=== PATIENT | male | born 1955 | race Caucasian/White ===

== ENCOUNTER 2017-06-13 01:52 | Emergency (ER) | payer OTHER ==
[2017-06-13] MEDS ORDERED: Hydromorphone 1 mg/ml Ampule IV ONE (02:16)
[2017-06-13] MEDS ORDERED: Phenergan 25 MG INJ IV ONE (02:16)
--- NOTE | 2017-06-13 02:25 | ERPHSYRPT ---
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 STATES HE COULD NOT GET COMFORTABLE, STATES WHEN HE MOVES IN CERTAIN DIRECTIONS IT HURTS WORSE. REPORTS IT IS DIFFICULT TO TAKE A DEEP BREATH. REPORTS HE WAS AT A [place] THIS EVENING AND HAD 2 BEERS WELL SOME DRINKS WITH TOMATO JUICE. PT ALSO REPORTS HAVING CHILLS. Triage Nursing Assessment: PT IS AOX3, PUPILS PERRL, RESPS ARE EASY AND NON LABORED, RADIAL PULSES ARE STRONG AND EQUAL, BOWEL SOUNDS ARE PRESENT AND NORMOACTIVE X4, ABD IS SOFT AND NON TENDER WITH PALPATION, PAIN RADIATES FROM LEFT UPPER QUAD TO THE LEFT FLANK AND BACK AREA. PEDAL PULSES ARE STRONG AND EQUAL. SKIN IS PINK WARM AND DRY. Physician History: ABOUT 30 MINUTES AGO PT AWOKE WITH SHARP LEFT CHEST/FLANK/LUQ ABDOMINAL PAIN WORSE WITH MOVEMENT AND DEEP BREATHING WITH CHILLS; DENIES VOMITING, FEVER, SHORTNESS OF AIR. PT STATES 3 DAYS AGO HE WAS HELPING ANOTHER PERSON LIFT 150# TENT POLES WHEN THE CLAMP SLIPPED ON HIS END CAUSING THE POLES TO SUDDENLY FALL. Allergies/Adverse Reactions: No Known Drug Allergies Allergy (Verified 06/13/17 02:07) Home Medications: Metformin HCl 500 mg [Glucophage 500 MG] 1 tab PO BID 07/02/16 [History] Pravastatin Sodium 1 tab PO DAILY 07/02/16 [History] Hx Tetanus, Diphtheria Vaccination/Date Given: Yes Hx Influenza Vaccination/Date Given: No Hx Pneumococcal Vaccination/Date Given: No Immunizations Up to Date: Yes - Review of Systems Constitutional: Chills, No Fever Respiratory: No Cough, No Dyspnea Cardiac: Chest Pain Abdominal/Gastrointestinal: Abdominal Pain (LUQ), Other (LEFT FLANK PAIN) Neurological: No Headache Endocrine: No Excessive Sweating All Other Systems: Reviewed and Negative - Past Medical History Pertinent Past Medical History: Yes Neurological History: No Pertinent History ENT History: No Pertinent History Cardiac History: High Cholesterol Respiratory History: No Pertinent History Endocrine Medical History: Diabetes Type II, Other Musculoskeletal History: No Pertinent History GI Medical History: No Pertinent History History: No Pertinent History Psycho-Social History: No Pertinent History Male Reproductive Disorders: No Pertinent History Other Medical History: pre diabetic, psoriasis - Past Surgical History Past Surgical History: Yes Neuro Surgical History: No Pertinent History Cardiac: No Pertinent History Respiratory: No Pertinent History Gastrointestinal: Appendectomy Genitourinary: No Pertinent History Musculoskeletal: No Pertinent History Male Surgical History: No Pertinent History - Social History Smoking Status: Current every day smoker Drug Use: none Patient Lives Alone: No - Nursing Vital Signs Nursing Vital Signs: Initial Vital Signs Temperature 98.3 F 06/13/17 01:55 Pulse Rate 93 H 06/13/17 01:55 Respiratory Rate 20 06/13/17 01:55 Blood Pressure 150/97 06/13/17 01:55 O2 Sat by Pulse Oximetry 96 06/13/17 01:55 Pain Scale Pain Intensity 0 - Physical Exam General Appearance: alert Eye Exam: PERRL/EOMI Ears, Nose, Throat Exam: pharynx normal, moist mucous membranes Neck Exam: normal inspection Respiratory Exam: lungs clear, No chest tenderness Cardiovascular Exam: normal heart sounds Gastrointestinal/Abdomen Exam: soft, normal bowel sounds Back Exam: normal inspection Extremity Exam: No pedal edema Neurologic Exam: alert, cooperative Skin Exam: warm, dry SpO2 Interpretation: normal SpO2: 96 Oxygen Delivery: Room Air - Course Nursing assessment & vital signs reviewed: Yes EKG Interpreted by Me: RATE (83), Sinus Rhythm, NORMAL AXIS, NORMAL INTERVALS - Radiology Exams Chest X-ray Interpretation: Interpreted by me, No Pneumonia - CT Exams Abdomen/Pelvis CT Interpretation: Tele-radiologist Report (SEE REPORT) Ordered Tests: Active Orders 24 hr Category Date Time Status Clean Catch Urine Specimen STAT Care 06/13/17 02:16 Active EKG-ER Only STAT Care 06/13/17 02:16 Active IV Insertion STAT Care 06/13/17 02:16 Active ABDOMEN AND PELVIS W/0 CONTRAS [CT] Stat Exams 06/13/17 02:17 Taken CHEST 2 VIEWS (PA AND LAT) Stat Exams 06/13/17 02:17 Taken AMYLASE Stat Lab 06/13/17 02:20 Completed CBC W DIFF Stat Lab 06/13/17 02:20 Completed CMP Stat Lab 06/13/17 02:20 Completed LIPASE Stat Lab 06/13/17 02:20 Completed MAG [MAGNESIUM] Stat Lab 06/13/17 02:20 Completed TROPONIN Q3H Lab 06/13/17 02:20 Completed TROPONIN Q3H Lab 06/13/17 05:30 Ordered TROPONIN Q3H Lab 06/13/17 08:30 Ordered TROPONIN Q3H Lab 06/13/17 11:30 Ordered TROPONIN Q3H Lab 06/13/17 14:30 Ordered UA W/ MICROSCOPIC Stat Lab 06/13/17 03:45 Completed Medication Summary Generic Name Dose Route Start Last Admin Trade Name Freq PRN Reason Stop Dose Admin Sodium Chloride 1,000 mls @ 100 mls/hr 06/13/17 02:30 06/13/17 02:28 Sodium Chloride 0.9% 1000 Ml IV 07/13/17 02:29 100 mls/hr .Q10H SEBASTIEN Administration Magnesium Oxide 400 mg 06/13/17 10:00 Mag-Ox 400 PO 07/13/17 09:59 BID SEBASTIEN Discontinued Medications Generic Name Dose Route Start Last Admin Trade Name Keshavq PRN Reason Stop Dose Admin Hydromorphone HCl 1 mg 06/13/17 02:16 06/13/17 02:28 Hydromorphone 1 Mg/Ml Ampule IV 06/13/17 02:17 1 mg STAT ONE Administration Hydromorphone HCl Confirm 06/13/17 02:26 Hydromorphone 1 Mg/Ml Ampule Administered 06/13/17 02:27 Dose 1 mg .ROUTE .STK-MED ONE Promethazine HCl 12.5 mg 06/13/17 02:16 06/13/17 02:28 Phenergan 25 Mg Inj IV 06/13/17 02:17 12.5 mg STAT ONE Administration Promethazine HCl Confirm 06/13/17 02:26 Phenergan 25 Mg Inj Administered 06/13/17 02:27 Dose 25 mg .ROUTE .STK-MED ONE Lab/Rad Data: Laboratory Result Diagrams 06/13/17 02:20 06/13/17 02:20 Laboratory Results 06/13/17 06/13/17 06/13/17 Range/Units 03:45 02:20 02:20 WBC (4.0-10.5) K/mm3 RBC (4.1-5.6) M/mm3 Hgb (12.5-18.0) gm/dl Hct (42-50) % MCV (78-100) fl MCH (26-32) pg MCHC (32-36) g/dl RDW (11.5-14.0) % Plt Count (150-450) K/mm3 MPV (6-9.5) fl Gran % (36.0-66.0) % Lymphocytes % (24.0-44.0) % Monocytes % (0.0-12.0) % Eosinophils % (0.00-5.0) % Basophils % (0.0-0.4) % Basophils # (0-0.4) Sodium (136-145) mEq/L Potassium (3.5-5.1) mEq/L Chloride (98-107) mEq/L Carbon Dioxide (21-32) mEq/L Anion Gap (5-15) MEQ/L BUN (9-20) mg/dL Creatinine (0.55-1.30) mg/dl Estimated GFR ML/MIN Glucose (70-110) MG/DL Calcium (8.5-10.1) mg/dL Magnesium 1.7 L (1.8-2.4) mg/dL Total Bilirubin (0.2-1.0) mg/dL AST (15-37) U/L ALT (12-78) U/L Alkaline Phosphatase (46-116) U/L Troponin I < 0.017 (0.000-0.056) ng/ml Serum Total Protein (6.4-8.2) gm/dL Albumin (3.4-5.0) g/dL Amylase (25-115) U/L Lipase (73-393) U/L Ur Collection Type CLEAN CATCH Urine Color STRAW (YELLOW) Urine Appearance CLEAR (CLEAR) Urine pH 5.0 (5-6) Ur Specific [place] 1.025 (1.005-1.025) Urine Protein NEGATIVE (Negative) Urine Ketones NEGATIVE (NEGATIVE) Urine Blood 50 (0-5) Keo/ul Urine Nitrite NEGATIVE (NEGATIVE) Urine Bilirubin NEGATIVE (NEGATIVE) Urine Urobilinogen NORMAL (0-1) mg/dL Ur Leukocyte Esterase NEGATIVE (NEGATIVE) Urine Microscopic RBC 0-2 (0-2) /HPF Ur Epithelial Cells RARE (FEW) /HPF Urine Mucus SLIGHT (NEGATIVE) /HPF Urine Glucose 250 (NEGATIVE) mg/dL Specimen Received 06/13/17:0345 06/13/17 06/13/17 Range/Units 02:20 02:20 WBC 9.7 (4.0-10.5) K/mm3 RBC 4.51 (4.1-5.6) M/mm3 Hgb 13.8 (12.5-18.0) gm/dl Hct 41.6 L (42-50) % MCV 92.2 (78-100) fl MCH 30.6 (26-32) pg MCHC 33.2 (32-36) g/dl RDW 12.9 (11.5-14.0) % Plt Count 270 (150-450) K/mm3 MPV 10.7 H (6-9.5) fl Gran % 62.4 (36.0-66.0) % Lymphocytes % 26.2 (24.0-44.0) % Monocytes % 8.2 (0.0-12.0) % Eosinophils % 2.6 (0.00-5.0) % Basophils % 0.6 (0.0-0.4) % Basophils # 0.06 (0-0.4) Sodium 140 (136-145) mEq/L Potassium 3.8 (3.5-5.1) mEq/L Chloride 105 (98-107) mEq/L Carbon Dioxide 23.8 (21-32) mEq/L Anion Gap 15.4 H (5-15) MEQ/L BUN 16 (9-20) mg/dL Creatinine 1.01 (0.55-1.30) mg/dl Estimated GFR > 60 ML/MIN Glucose 251 H (70-110) MG/DL Calcium 9.2 (8.5-10.1) mg/dL Magnesium (1.8-2.4) mg/dL Total Bilirubin 0.20 (0.2-1.0) mg/dL AST 12 L (15-37) U/L ALT 23 (12-78) U/L Alkaline Phosphatase 116 (46-116) U/L Troponin I (0.000-0.056) ng/ml Serum Total Protein 7.1 (6.4-8.2) gm/dL Albumin 3.9 (3.4-5.0) g/dL Amylase 41 (25-115) U/L Lipase 114 (73-393) U/L Ur Collection Type Urine Color (YELLOW) Urine Appearance (CLEAR) Urine pH (5-6) Ur Specific [place] (1.005-1.025) Urine Protein (Negative) Urine Ketones (NEGATIVE) Urine Blood (0-5) Keo/ul Urine Nitrite (NEGATIVE) Urine Bilirubin (NEGATIVE) Urine Urobilinogen (0-1) mg/dL Ur Leukocyte Esterase (NEGATIVE) Urine Microscopic RBC (0-2) /HPF Ur Epithelial Cells (FEW) /HPF Urine Mucus (NEGATIVE) /HPF Urine Glucose (NEGATIVE) mg/dL Specimen Received - Departure Time of Disposition: 04:09 Departure Disposition: Home Clinical Impression: ABDOMINAL PAIN, CHEST PAIN Condition: Stable Critical Care Time: No Referrals: STEPHANIE GARCIA [Primary Care Provider] - Instructions: Abdominal Pain-Adult, Chest Pain Additional Instructions: FOLLOW UP WITH PRIVATE DOCTOR TOMORROW. Prescriptions: Naproxen 500 mg PO Q12H PRN PRN #20 tablet.dr GRISSOM Reason: Pain Cyclobenzaprine HCl [Flexeril] 10 mg PO TID #30 tablet
[2017-06-13] MEDS ORDERED: Sodium Chloride 0.9% 1000 ML 1,000 ML ONE (02:26)
[2017-06-13] MEDS ORDERED: Phenergan 25 MG INJ ONE (02:26)
[2017-06-13] MEDS ORDERED: Hydromorphone 1 mg/ml Ampule ONE (02:26)
[2017-06-13 02:29] LABS: BASOPHIL % 0.6 % (0.0-0.4); Eosinophil % 2.6 % (0.00-5.0); Granulocytes % 62.4 % (36.0-66.0); Lymphocytes % 26.2 % (24.0-44.0); Mean Cell Volume 92.2 fl (78-100); Mean Corpuscular Hemoglobin 30.6 pg (26-32); Mean Platelet Volume 10.7 fl (6-9.5); Monocytes % 8.2 % (0.0-12.0); Platelet Count 270 K/mm3 (150-450); Red Blood Count 4.51 M/mm3 (4.1-5.6); Red Cell Distribution Width 12.9 % (11.5-14.0); White Blood Count 9.7 K/mm3 (4.0-10.5)
[2017-06-13] MEDS ORDERED: Sodium Chloride 0.9% 1000 ML 1,000 ML IV SCH (02:30)
[2017-06-13 02:53] LABS: ALBUMIN 3.9 g/dL (3.4-5.0); ALKALINE PHOSPHATASE 116 U/L (46-116); ANION GAP 15.4 MEQ/L (5-15); BLOOD UREA NITROGEN 16 mg/dL (9-20); CHLORIDE 105 mEq/L (98-107); Carbon Dioxide 23.8 mEq/L (21-32); Glucose 251 MG/DL (70-110); LIPASE 114 U/L (73-393); Potassium 3.8 mEq/L (3.5-5.1); SGOT/AST 12 U/L (15-37); SGPT/ALT 23 U/L (12-78); SODIUM 140 mEq/L (136-145); Total Protein 7.1 gm/dL (6.4-8.2)
[2017-06-13 03:59] LABS: Collection Type CLEAN CATCH
[2017-06-13 04:00] LABS: ADD URINE CULTURE? NO (NO); Bilirubin NEGATIVE (NEGATIVE); Blood 50 Ery/ul (0-5); COMPLETE URINE MICROSCOPIC? YES; Epithelial Cells RARE /HPF (FEW); Glucose 250 mg/dL (NEGATIVE); Leukocyte Esterase NEGATIVE (NEGATIVE); Mucus SLIGHT /HPF (NEGATIVE)
[2017-06-13 04:20] VITALS: BP 143/79; PULSE 83; O2SAT 95
[2017-06-13] MEDS ORDERED: MAG-OX 400 PO SCH (10:00)
--- NOTE | 2017-06-13 10:01 | XRAY ---
Indication: Severe left upper quadrant/left flank pain. Multiple contiguous axial images obtained through the abdomen and pelvis without contrast as ordered. Comparison: None Lung bases essentially clear. Heart is not enlarged. Noncontrasted stomach and bowel loops appear nonobstructed. Mild scattered sigmoid diverticulosis without diverticulitis. Previous reported appendectomy. No free fluid/air. There are multiple hepatic cysts predominantly in the left lobe largest measuring 7.5 cm. Remaining liver, gallbladder, pancreas, spleen, adrenal glands, kidneys, ureters, and bladder appear unremarkable for noncontrasted exam. Mild aortoiliac calcifications without AAA. Osseous structures intact with mild degenerative changes throughout the spine. Impression: 1. Sigmoid diverticulosis without diverticulitis. 2. Hepatic cysts. 3. No acute intra-abdominal/pelvic abnormalities on this noncontrast exam. Comment: Preliminary interpretation was made by C. No discrepancy. CTDI 23.68
--- NOTE | 2017-06-13 10:01 | XRAY ---
Indication: Left anterior chest pain. Comparison: None PA/lateral chest hyperinflated with minimal lingular atelectasis/scarring. Remaining heart and lungs normal. Bony thorax intact with mild degenerative changes and old left clavicle fracture. Impression: Nonacute chest with chronic features.
== END 2017-06-13 04:20 | disposition home or self-care (01) ==
LOC: ED 01:52
DX: R10.9 Unspecified abdominal pain (principal); R07.9 Chest pain, unspecified
CPT/HCPCS: 36000; 36415; 71020; 74176; 80053; 81000; 82150; 83690; 83735; 84484; 85025; 93005; 96360; 96361; 96374; 96375; 99284; 99285; J1170; J2550